=== PATIENT | female | born 1985 | race African-American/Black ===

== ENCOUNTER 2017-06-24 00:06 | Emergency (ER) | payer OTHER ==
[2017-06-24 00:37] VITALS: BP 116/78; PULSE 70; TEMP 97.9; BMI 21.9
--- NOTE | 2017-06-24 01:51 | PDOC ---
History of Present Illness - History of Present Illness Initial Comments: 06/24/17 01:51 The patient is a 31 year old female who complains of right eyelid droop that began today. She states she has history of recurrent "strain" in her right eye which results in eyelid droop. She states this is typically associated with stress and has been evaluated by an opthamologist in the past. She did not see an opthamologist or outside complaint for her symptoms today, which are similar to previous episodes. No visual changes. No headache, numbness or tingling, or focal weakness. <Deena Cheng - Last Filed: 06/24/17 03:10> - General History Source: Patient <[email or web address] - Last Filed: 06/24/17 19:13> - General Chief Complaint: Eye Problem Stated Complaint: EYE PROBLEM Time Seen by Provider: 06/24/17 01:51 Past History <Deena Cheng - Last Filed: 06/24/17 03:10> - Past Medical History COPD: No Other medical history: Pt denies - Surgical History Cardiac Surgery: Yes (Ablation for SVT) - Suicide/Smoking/Psychosocial Hx Smoking History: Never smoked Have you smoked in the past 12 months: No Information on smoking cessation initiated: No Hx Alcohol Use: No Drug/Substance Use Hx: No Substance Use Type: None <Mark Boyd - Last Filed: 06/24/17 19:13> - Past Medical History Allergies/Adverse Reactions: Allergies Allergy/AdvReac Type Severity Reaction Status Date / Time No Known Allergies Allergy Verified 06/24/17 00:24 Home Medications: Ambulatory Orders NK [No Known Home Medication] 06/24/17 Review of Systems - Review of Systems Able to Perform ROS?: Yes Comments:: 06/24/17 01:54 GENERAL/CONSTITUTIONAL: No fever or chills. No weakness. HEAD, EYES, EARS, NOSE AND THROAT: +Right eyelid droop. No change in vision. No ear pain or discharge. No sore throat. CARDIOVASCULAR: No chest pain or shortness of breath. RESPIRATORY: No cough, wheezing, or hemoptysis. GASTROINTESTINAL: No nausea, vomiting, diarrhea or constipation. GENITOURINARY: No dysuria, frequency, or change in urination. MUSCULOSKELETAL: No joint or muscle swelling or pain. No neck or back pain. SKIN: No rash NEUROLOGIC: No headache, vertigo, loss of consciousness, or change in strength/ sensation. ENDOCRINE: No increased thirst. No abnormal weight change. HEMATOLOGIC/LYMPHATIC: No anemia, easy bleeding, or history of blood clots. ALLERGIC/IMMUNOLOGIC: No hives or skin allergy. <Deena Cheng - Last Filed: 06/24/17 03:10> *Physical Exam - Vital Signs Last Vital Signs Temp Pulse Resp BP Pulse Ox 97.9 F 70 20 116/78 100 06/24/17 00:25 06/24/17 00:25 06/24/17 00:25 06/24/17 00:25 06/24/17 00:25 - Physical Exam Comments: 06/24/17 01:55 GENERAL: Awake, alert, and fully oriented, in no acute distress HEAD: No signs of trauma EYES: PERRLA, EOMI, sclera anicteric, conjunctiva clear ENT: Auricles normal inspection, nares patent. Moist mucosa NECK: Normal ROM, supple, no JVD, or masses LUNGS: Breath sounds equal, clear to auscultation bilaterally. No wheezes, and no crackles HEART: Regular rate and rhythm, normal S1 and S2, no murmurs, rubs or gallops ABDOMEN: Soft, nontender, normoactive bowel sounds. No guarding, no rebound. No masses EXTREMITIES: Normal range of motion, no edema. No clubbing or cyanosis. No cords, erythema, or tenderness NEUROLOGICAL: Alert and oriented x 3. Moves all extremities. Face is symmetric. SKIN: Warm, Dry, normal turgor, no rashes or lesions noted. <Deena Cheng - Last Filed: 06/24/17 03:10> - Vital Signs Last Vital Signs Temp Pulse Resp BP Pulse Ox 97.9 F 70 20 116/78 100 06/24/17 00:25 06/24/17 00:25 06/24/17 00:25 06/24/17 00:25 06/24/17 00:25 <Mark Boyd - Last Filed: 06/24/17 19:13> Medical Decision Making - Medical Decision Making 06/24/17 03:10 CT of head without contrast. Preliminary interpretation by Imaging Tank Inspector. Impression: no acute pathology <Deena Cheng - Last Filed: 06/24/17 03:10> - Medical Decision Making 06/24/17 19:13 Dr. Boyd: The scribe's documentation has been prepared under my direction and personally reviewed by me in its entirery. I confirm that the note above accurately reflects all work, treatment, procedures, and medical decision making performed by me. <Mark Boyd - Last Filed: 06/24/17 19:13> *DC/Admit/Observation/Transfer - Attestations Scribe Attestion: 06/24/17 01:55 Documentation prepared by Deena Cheng, acting as medical diagnostic radiographer for Mark Boyd DO. <Deena Cheng - Last Filed: 06/24/17 03:10> - Discharge Dispostion Admit: No <Mark Boyd - Last Filed: 06/24/17 19:13> Diagnosis at time of Disposition: Pain, eye, right - Discharge Dispostion Disposition: HOME Condition at time of disposition: Stable - Referrals Referrals: Shantell Chapman MD [Staff Physician] - - Patient Instructions Printed Discharge Instructions: DI for Eye Pain
== END 2017-06-24 05:07 | disposition home or self-care (01) ==
LOC: JER 00:06
DX: H57.11 Ocular pain, right eye (principal); I47.1 Supraventricular tachycardia
CPT/HCPCS: 70450-TC; 84703; 99281-25